=== PATIENT | male | born 1985 | race Caucasian/White ===

== ENCOUNTER 2016-12-01 19:34 | Emergency (ER) | payer BC ==
[~2016-12-01] VITALS: Ht 193 cm; Wt 87.4 kg
[2016-12-01 19:35] VITALS: BP 147/96
[2016-12-01] MEDS ORDERED: DEXAMETHASONE 4 MG TABLET PO STA (19:51)
[2016-12-01] MEDS ORDERED: DEXAMETHASONE 4 MG TABLET ONE (19:52)
== END 2016-12-01 20:11 | disposition home or self-care (01) ==
LOC: ED 20:06
DX: J02.0 Streptococcal pharyngitis (principal)
CPT/HCPCS: 99283